=== PATIENT | male | born 1945 | race Caucasian/White ===

== ENCOUNTER → 2021-02-16 | Day surgery (SDC) | payer OTHER ==
[~2021-02-16] MED LIST: ATORVASTATIN CA40 MG PO; CLARITIN10 M2 PO; FISH OIL 1,0001 EAC4 PO; VITAMIN D 40400 UNIT PO; ZESTRIL20 MG PO
== END | disposition home or self-care (01) ==
LOC: OR 06:15
DX: Z12.11 Encounter for screening for malignant neoplasm of colon (principal); I10 Essential (primary) hypertension; E78.5 Hyperlipidemia, unspecified; G47.30 Sleep apnea, unspecified; Z86.010 Personal history of colon polyps; Z85.46 Personal history of malignant neoplasm of prostate; Z99.89 Dependence on other enabling machines and devices; Z87.891 Personal history of nicotine dependence; Z79.899 Other long term (current) drug therapy; Z20.822 Contact with and (suspected) exposure to COVID-19
CPT/HCPCS: J2370; J2704; J7030